=== PATIENT | male | born 1955 | race Caucasian/White ===

== ENCOUNTER 2018-12-11 16:35 | Emergency (ER) | payer OTHER ==
[2018-12-11] MEDS ORDERED: Lidocaine 1% 20 ML MDV ONE (17:01)
[2018-12-11] MEDS ORDERED: Adacel (T-DAP) 0.5 ML SYRINGE ONE (17:01)
== END 2018-12-11 17:29 | disposition home or self-care (01) ==
LOC: SCSER 16:35
DX: S61.210A Laceration without foreign body of right index finger without damage to nail, initial encounter (principal); E78.5 Hyperlipidemia, unspecified; I10 Essential (primary) hypertension; F17.210 Nicotine dependence, cigarettes, uncomplicated; W26.9XXA Contact with unspecified sharp object(s), initial encounter
CPT/HCPCS: 12001; 90471; 90715; J2001